=== PATIENT | female | born 1985 | race Caucasian/White ===

== ENCOUNTER 2016-07-05 18:04 | Emergency (ER) | payer MEDICAID ==
[~2016-07-05] VITALS: Ht 160 cm; Wt 101.5 kg
[~2016-07-05 18:04] MED LIST: METF500T PO
[2016-07-05 18:32] VITALS: Ht 160 cm; Wt 101.5 kg
--- NOTE | 2016-07-05 19:16 | ERD ---
ER Documentation Chief Complaint Date/Time DATE: 07/05/16 TIME: 19:07 Chief Complaint sent by pmd for high blood sugar 15 weeks blood sugar poc 93 HPI 30-year-old female presents here in emergency department for an elevated blood sugar episode last Saturday. Patient had a blood draw, but patient ate prior to blood draw, patient had a phone call today from that her blood sugar was elevated. Patient was advised to go to the emergency department for evaluation. Patient does not have any other symptoms. Patient is approximately 15 weeks , 3 para 2 0. Patient has any abdominal pain, cramping hematuria dysuria vomiting. Patient denies any symptoms. ROS All systems reviewed and are negative except as per history of present illness. Medications Home Meds Reported Medications Metformin Hcl (Glucophage) 500 Mg Tablet, 500 MG PO HS, TAB 07/02/14 Allergies Allergies: Coded Allergies: No Known Allergy (Unverified , 07/02/14) PMhx/Soc Medical and Surgical Hx: pt denies Medical Hx, pt denies Surgical Hx FmHx Family History: No coronary disease, No diabetes, No other Physical Exam Vitals Vital Signs Date Time Temp Pulse Resp B/P Pulse Ox O2 Delivery O2 Flow Rate FiO2 07/05/16 18:32 98.9 79 18 123/77 99 Physical Exam GENERAL: The child is well developed and nourished for age, interactive and vigorous appearing. No acute distress and nontoxic. HEENT: Atraumatic. Ears: Normal tympanic membrane, no erythema or bulging. No ear canal swelling. No ear discharge. Nose: normal nasal turbinates, no erythema or swelling. Normal nasal discharge. Throat: oropharynx clear. No tonsillar swelling or tonsillar exudates. No lymphadenopathy. LUNGS: Clear to auscultation. No accessory muscle use. No wheezing, no crackles. No signs or symptoms of respiratory distress. HEART: Regular rate and rhythm. No murmurs, clicks, rubs or gallops. ABDOMEN: Soft, nontender and nondistended. Bowel sounds positive. No rebound or guarding. No gross peritoneal signs. No Delgadillo or McBurney point tenderness. No gross masses. BACK: No midline tenderness, no costovertebral tenderness. EXTREMITIES: There is no peripheral cyanosis or edema. No focal pain or notable trauma. Full range of motion. Good capillary refill. NEURO: The patient moves all 4 extremities with 5/5 strength. Cranial nerves are grossly intact. Normal mental status for age. SKIN: There is no apparent rash, petechiae, erythema or swelling. Good skin turgor. Results 24 hrs Laboratory Tests Test 07/05/16 18:34 Bedside Glucose 93mg/dL Procedures/MDM Medical decision making:Patient's diabetic symptoms is normal and evaluation here in the emergency department , blood sugar is 93 mg/dL and appear appropriate for outpatient management. No evidence at this time of diabetic ketoacidosis, hyperosmolar syndrome, or severe systemic infection. She was advised to follow-up with primary care doctor for further evaluation, outpatient management is appropriate at this time. Patient was advised to return to emergency department for any worsening symptoms. Departure Diagnosis: Primary Impression: Hyperglycemia Patient Instructions: Hyperglycemia (High Blood Sugar) Additional Instructions: today's blood sugar is 93 mg/dl, normal Patient's diabetic symptoms are normal upon reevaluation here in the emergency department and appear appropriate for outpatient management. No evidence at this time of diabetic ketoacidosis, hyperosmolar syndrome, or severe systemic infection. JANELLE PERKINS NP July 05, 2016 19:16
== END 2016-07-05 19:07 | disposition home or self-care (01) ==
LOC: E/R 18:04
DX: O99.89 Other specified diseases and conditions complicating pregnancy, childbirth and the puerperium (principal); R73.9 Hyperglycemia, unspecified; Z3A.15 15 weeks gestation of pregnancy
CPT/HCPCS: 82962; Z7502; 99282

== ENCOUNTER 2016-07-16 16:30 | Inpatient (IN) | payer MEDICAID ==
[2016-07-16] MEDS ORDERED: GLUCOSE GEL 15 GRAM TUBE PO PRN ×2 (19:00)
[2016-07-16] MEDS ORDERED: GLUCOSE GEL 15 GRAM TUBE BUCCAL PRN (19:00)
[2016-07-16] MEDS ORDERED: GLUCAGON 1 MG INJ IM PRN (19:00)
[2016-07-16] MEDS ORDERED: DEXTROSE 50% 50 ML SYRINGE IV PRN ×2 (19:00)
[2016-07-16] MEDS ORDERED: ACCU-CHEK XX SCH (20:05)
[2016-07-16] MEDS: INSULIN ASPART [NOVOLOG] 3 ML PEN SC SCH (20:05)
[2016-07-16] MEDS: ACCU-CHEK XX SCH ×2 (20:06)
[2016-07-16 20:58] LABS: ADD SCAN DIFF NO
[2016-07-16 21:02] LABS: BASOPHIL # 0.1 10^3/ul (0.0-0.1); BASOPHILS % 0.3 % (0.0-2.0); EOSINOPHILS # 0.4 10^3/ul (0.0-0.5); EOSINOPHILS % 2.6 % (0.0-7.0); HEMATOCRIT 34.5 % (37.0-47.0); LYMPHOCYTES # 3.3 10^3/ul (0.8-2.9); LYMPHOCYTES % 19.5 % (15.0-51.0); MEAN CORPUSCULAR HEMOGLOBIN 27.9 pg (29.0-33.0); MEAN CORPUSCULAR HGB CONC 34.8 g/dl (32.0-37.0); MEAN CORPUSCULAR VOLUME 80.2 fl (82.0-101.0); MEAN PLATELET VOLUME 9.5 fl (7.4-10.4); MONOCYTE # 0.6 10^3/ul (0.3-0.9); MONOCYTES % 3.5 % (0.0-11.0); NEUTROPHIL # 12.3 10^3/ul (1.6-7.5); NEUTROPHILS % 73.7 % (39.0-77.0); PLATELET COUNT 303 10^3/UL (140-415); WHITE BLOOD COUNT 16.7 10^3/ul (4.8-10.8)
[2016-07-16 21:21] LABS: ALBUMIN 3.7 g/dl (3.3-4.9); ALBUMIN/GLOBULIN RATIO 1.08; CALCIUM 9.1 mg/dl (8.4-10.2); CREATININE 0.43 mg/dl (0.44-1.00); POTASSIUM 3.5 mmol/L (3.5-5.1); TOTAL PROTEIN 7.1 g/dl (6.1-8.1)
--- NOTE | 2016-07-17 06:44 | RADRPT ---
PROCEDURE: Obstetrical ultrasound, limited. CLINICAL INDICATION: Pelvic pain. TECHNIQUE: Multiple sonographic images of the pelvis were obtained using transabdominal technique . Images were obtained with urias scale and color Doppler. The images were reviewed on a PACS works tation. COMPARISON: No prior studies are available for comparison. FINDINGS: There is a single intrauterine gestation with the fetus in a vertex presentation. heart tones of 154 beats per minute are identified. The placenta is anterior in location, grade 0. IMPRESSION: Single viable intrauterine gestation with positive heart tones. .Nazario Sutton MD, MD Date Time Electronically viewed and signed by .Nazario Sutton MD, MD on 07/17/2016 06:43 .T/
[2016-07-17] MEDS: ACCU-CHEK XX SCH ×8 (08:00→20:52)
[2016-07-17] MEDS: INSULIN ASPART [NOVOLOG] 3 ML PEN SC SCH ×3 (10:00→20:05)
[2016-07-17] MEDS ORDERED: INSULIN ASPART [NOVOLOG] 3 ML PEN SC SCH (18:05)
[2016-07-17 18:58] LABS: SCRET 0.43 mg/dl (0.44-1.00)
[2016-07-17] MEDS ORDERED: ACCU-CHEK XX SCH (20:05)
--- NOTE | 2016-07-17 20:38 | QN ---
Documentation Comment No complaint Afebrile VSS Blood glucose elevated. Patient is started on insulin regimen by Perinatology. ANTHONY BONDS MD July 17, 2016 20:38
[2016-07-17] MEDS ORDERED: INSULIN ISOPHANE (NPH) 10 ML INJ SC SCH (21:00)
[2016-07-17] MEDS ORDERED: SALINE 0.65% NAS 14.1 GM TUBE NASAL PRN (21:00)
--- NOTE | 2016-07-18 06:36 | HP ---
DATE OF ADMISSION: 07/16/2016 HISTORY OF PRESENT ILLNESS: A 30-year-old female 3, para 2, estimated date of delivery 12/26, at 14 weeks gestation, was admitted due to uncontrolled diabetes mellitus. PAST MEDICAL HISTORY: Diabetes. PAST SURGICAL HISTORY: Oophorectomy. ALLERGIES: NO KNOWN ALLERGIES. FAMILY HISTORY: Diabetes. PHYSICAL EXAMINATION: VITAL SIGNS: Patient is afebrile. Vital signs stable. HEAD, NECK AND CHEST: Within normal limits. ABDOMEN: Soft, nontender, nondistended. PELVIC: Normal. ____. ____: Within normal limits. Laboratory studies included a hemoglobin A1c of 9.4 and random blood g lucose of 250 ____. IMPRESSION: at 14 weeks with uncontrolled diabetes mellitus. PLAN: Admit. Diabetic diet and Accu-Cheks fasting at 2 hour postprandial, diabetic teaching, nutri tional consult and perinatology consultations. Dictated By: ANTHONY BAI/LINDSAY Conf#: [id number] DID#: [id number]
[2016-07-18] MEDS ORDERED: INSULIN ISOPHANE (NPH) 10 ML INJ SC SCH ×2 (07:30)
[2016-07-18] MEDS ORDERED: INSULIN ASPART [NOVOLOG] 3 ML PEN SC SCH (08:00)
[2016-07-18] MEDS: ACCU-CHEK XX SCH ×5 (08:35→15:20)
[2016-07-18] MEDS: INSULIN ASPART [NOVOLOG] 3 ML PEN SC SCH (11:17)
--- NOTE | 2016-07-18 13:25 | RADRPT ---
Vent Rate: 76 bpm RR Interval: 0 msec FL Interval: 142 msec QRS Duration: 100 msec QT Interval: 378 msec QTC Interval: 425 msec P-R-T [place]: 41 - 56 - 41 degrees Normal sinus rhythm Normal ECG Electronically Signed By: Angelito Monet [id number]
--- NOTE | 2016-07-18 14:29 | CONS ---
DATE OF ADMISSION: 07/16/2016 DATE OF CONSULTATION: 07/17/2016 HISTORY OF PRESENT ILLNESS: The patient is a 30-year-old G3, P2 at currently 14 weeks and 1 day who was admitted for uncontrolled diabetes her first trimester. Her hemoglobin A1c was 9.4% at the jasvir e of admission. She has been diabetic since her last and has not had any management since diagnosis. Upon admission to the hospital, she was placed on insulin, and currently, as of about 1 0 minutes ago, her numbers are much, much improved. There are within normal limits except for fasti ng for which I increased NPH at bedtime. PAST MEDICAL HISTORY: Per above. PAST SURGICAL HISTORY: None. REVIEW OF SYSTEMS: Everything is negative except for what is mentioned above. VITAL SIGNS: Stable. PHYSICAL EXAMINATION: Deferred. LABORATORY DATA: A 24-hour urine shows protein amount to be over 500 grams. IMPRESSION: Intrauterine at 14 weeks with uncontrolled diabetes on insulin, initiated upo n admission to the hospital, currently much improved. RECOMMENDATIONS: She can be discharged home on the regimen currently. She should be seen in our clinic within 2 weeks after discharge. She is to continue with her insuli n regimen and dietary recommendations which she was given at the hospital. Dictated By: RUBY ATWOOD/LINDSAY Conf#: [id number] DID#: [id number]
--- NOTE | 2016-07-18 14:42 | DS ---
DATE OF ADMISSION: 07/16/2016 DATE OF DISCHARGE: 07/18/2016 ADMITTING DIAGNOSIS: at 14 weeks, uncontrolled diabetes. HISTORY: A 30-year-old female 3, para 2, at 14 weeks' gestation was admitted per recommenda tion of perinatologist for control of her diabetes. The patient was admitted on 07/16/2016. The pa tient was placed on diabetic diet. The patient's blood sugar was monitored. The patient was placed on insulin regimen by perinatologist. The patient's insulin regimen was adjusted. The patient's b lood sugar was controlled. On 07/18/2016, the patient was cleared for discharge by perinatologist. CONDITION ON DISCHARGE: Stable. DISCHARGE INSTRUCTIONS: DIET: A 2000 calorie ADA diet. ACTIVITIES: As tolerated. MEDICATIONS: Continue with: 1. Insulin regimen. 2. vitamins. FOLLOWUP: With perinatology in 1 week. FINAL DIAGNOSES: 1. , not delivered. 2. Insulin-dependent diabetes. Dictated By: ANTHONY BAI/NTS Conf#: [id number] DID#: [id number]
== END 2016-07-18 16:15 | disposition home or self-care (01) | DRG 781 ==
LOC: OBG 16:30
PROVIDERS: ADMIT Obstetrics & Gynecology; ATTEND Obstetrics & Gynecology
DX: O24.112 Pre-existing type 2 diabetes mellitus, in pregnancy, second trimester (principal); E11.9 Type 2 diabetes mellitus without complications; Z3A.14 14 weeks gestation of pregnancy; Z79.4 Long term (current) use of insulin
CPT/HCPCS: 76805; 80053; 82575; 82962; 84156; 85025; 93005; J1815

== ENCOUNTER 2016-12-17 20:01 | Inpatient (IN) | payer MEDICAID ==
[~2016-12-17] VITALS: Ht 157.5 cm; Wt 105.2 kg
--- NOTE | 2016-12-17 20:03 | NSTRPT ---
NST Information Datetime Report Generated by CPN: 12/17/2016 20:03 Datetime: 12/14/2016 10:31 NST Information EGA: 36.3 NST Duration (Min): 25 Datetime: 12/11/2016 10:37 NST Information EGA: 36.0 NST Duration (Min): 27 Electronically Signed By E-Signature: with User ID: [id number] Datetime: 12/07/2016 10:39 NST Information EGA: 35.3 NST Duration (Min): 27 Datetime: 12/04/2016 10:30 NST Information EGA: 35.0 NST Duration (Min): 62 Datetime: 11/30/2016 09:57 NST Information EGA: 34.3 NST Duration (Min): 35 Datetime: 11/27/2016 13:13 NST Information EGA: 34.0 NST Duration (Min): 39 Datetime: 11/22/2016 09:43 NST Information EGA: 33.2 NST Duration (Min): 39 Datetime: 11/19/2016 15:03 NST Information EGA: 32.6 NST Duration (Min): 40 Datetime: 11/15/2016 10:58 NST Information EGA: 32.2 NST Duration (Min): 26
--- NOTE | 2016-12-17 20:03 | NSTRPT ---
NST Information Datetime Report Generated by CPN: 12/17/2016 20:03 Datetime: 12/14/2016 10:31 NST Information EGA: 36.3 NST Duration (Min): 25 Datetime: 12/11/2016 10:37 NST Information EGA: 36.0 NST Duration (Min): 27 Electronically Signed By E-Signature: with User ID: [id number] Datetime: 12/07/2016 10:39 NST Information EGA: 35.3 NST Duration (Min): 27 Datetime: 12/04/2016 10:30 NST Information EGA: 35.0 NST Duration (Min): 62 Datetime: 11/30/2016 09:57 NST Information EGA: 34.3 NST Duration (Min): 35 Datetime: 11/27/2016 13:13 NST Information EGA: 34.0 NST Duration (Min): 39 Datetime: 11/22/2016 09:43 NST Information EGA: 33.2 NST Duration (Min): 39 Datetime: 11/19/2016 15:03 NST Information EGA: 32.6 NST Duration (Min): 40 Datetime: 11/15/2016 10:58 NST Information EGA: 32.2 NST Duration (Min): 26
--- NOTE | 2016-12-17 20:03 | NSTRPT ---
NST Information Datetime Report Generated by CPN: 12/17/2016 20:03 Datetime: 12/14/2016 10:31 NST Information EGA: 36.3 NST Duration (Min): 25 Datetime: 12/11/2016 10:37 NST Information EGA: 36.0 NST Duration (Min): 27 Electronically Signed By E-Signature: with User ID: [id number] Datetime: 12/07/2016 10:39 NST Information EGA: 35.3 NST Duration (Min): 27 Datetime: 12/04/2016 10:30 NST Information EGA: 35.0 NST Duration (Min): 62 Datetime: 11/30/2016 09:57 NST Information EGA: 34.3 NST Duration (Min): 35 Datetime: 11/27/2016 13:13 NST Information EGA: 34.0 NST Duration (Min): 39 Datetime: 11/22/2016 09:43 NST Information EGA: 33.2 NST Duration (Min): 39 Datetime: 11/19/2016 15:03 NST Information EGA: 32.6 NST Duration (Min): 40 Datetime: 11/15/2016 10:58 NST Information EGA: 32.2 NST Duration (Min): 26
[2016-12-17 20:43] VITALS: Ht 157.5 cm; Wt 105.2 kg
[2016-12-17 20:44] VITALS: BP 148/79; PULSE 90; RESP 19
[2016-12-17] MEDS ORDERED: FER325 PO (20:46)
[2016-12-17] MEDS ORDERED: PREN1TAB17 PO (20:46)
--- NOTE | 2016-12-17 21:39 | RADRPT ---
PROCEDURE: Obstetrical ultrasound for biophysical profile CLINICAL INDICATION: Biophysical profile. . TECHNIQUE: Obstetrical ultrasound of the uterus for biophysical profile. Transabdominal views are obtained. COMPARISON: 12/14/2016 FINDINGS: Single intrauterine gestation. Presentation: Cephalic. Placenta: Right lateral No evidence of placental abruption. No evidence of placenta previa. breathing movement = 2/2 tone = 2/2 motion = 2/2 ANU = 2/2 ANU = 12.9 cm heart rate: 132 beats per minute IMPRESSION: Single intrauterine gestation. Biophysical profile 10/02 RPTAT: AADD .Hilario Pereira MD, MD Date Time Electronically viewed and signed by .Hilario Pereira MD, on 12/17/2016 21:39 .B/
[2016-12-17] MEDS ORDERED: NOVO7030 SC (23:27)
[2016-12-17] MEDS ORDERED: INSU100V3 IJ ×2 (23:28→23:29)
[2016-12-17] MEDS ORDERED: NPH,100V SQ ×2 (23:31)
[2016-12-18] MEDS ORDERED: ACETAMINOPHEN 325 MG TAB PO PRN
[2016-12-18] MEDS ORDERED: AL HYDROX/MG HYDROX/SIMETH 30 ML CUP PO PRN
--- NOTE | 2016-12-18 00:59 | TRIAGE ---
OB Triage Datetime Report Generated by CPN: 12/18/2016 00:58 Datetime: 12/18/2016 00:46 Time of Arrival: 12/17/2016 19:49 EGA: 36.6 Arrived By: Wheelchair Arrived From: Home Chief Complaint: SENT FROM CLINIC FOR ELEVATED BP'S WITH ORDERS FOR PIH LABS Movement: Present Contractions: Denies/Absent Rupture of Membranes: Denies Vaginal Bleeding: None Vaginal Discharge: Denies Recent Sexual Intercouse: Denies Patient Complaints: Other Initial Plan: BPP, CBC, CMP, URIC ACID, BPP, UA Datetime: 12/18/2016 00:40 Labor Evaluation Frequency: X3 Monitor Mode: External Duration (sec)2399: 50-60 Pattern: Normal: <= 5 Contractions in 10 Minutes Resting Tone [place]: Relaxed Heart Rate FHR Baseline Rate: 120 Monitor Mode: External US Variability: Moderate 6-25 bpm Accelerations: 15X15 Decelerations: None Category: Category I Datetime: 12/17/2016 23:16 Vaginal Exam Membrane Status: Intact Datetime: 12/17/2016 23:00 Maternal Assessment Level of Consciousness: Fully Conscious DTR's/Clonus: No Clonus Headache: Denies Blurred Vision: No Nausea/Vomiting: Denies RUQ Epigastric Pain: Denies Labor Evaluation Frequency: NONE Monitor Mode: External Pattern: Normal: <= 5 Contractions in 10 Minutes Resting Tone [place]: Relaxed Heart Rate FHR Baseline Rate: 120 Monitor Mode: External US Variability: Moderate 6-25 bpm Accelerations: 15X15 Decelerations: None Category: Category I Datetime: 12/17/2016 22:00 Labor Evaluation Frequency: NONE Monitor Mode: External Pattern: Normal: <= 5 Contractions in 10 Minutes Resting Tone [place]: Relaxed Heart Rate FHR Baseline Rate: 130 Monitor Mode: External US Variability: Moderate 6-25 bpm Accelerations: 15X15 Decelerations: None Category: Category I Datetime: 12/17/2016 21:00 Labor Evaluation Frequency: NONE Monitor Mode: External Pattern: Normal: <= 5 Contractions in 10 Minutes Resting Tone [place]: Relaxed Heart Rate FHR Baseline Rate: 135 Monitor Mode: External US Variability: Moderate 6-25 bpm Accelerations: 15X15 Decelerations: None Category: Category I Datetime: 12/17/2016 20:28 Maternal Assessment Level of Consciousness: Fully Conscious DTR's/Clonus: DTRs 2+; No Clonus Headache: Denies Blurred Vision: No Nausea/Vomiting: Denies RUQ Epigastric Pain: Denies Datetime: 07/18/2016 15:23 Stage of : Antepartum Datetime: 07/18/2016 15:18 Bedside Blood Glucose: 95 (Annotations: 2 HOUR POST LUNCH) Datetime: 07/18/2016 13:45 Stage of : Antepartum Datetime: 07/18/2016 11:28 Temperature Route: Oral Pain Assessment Pain Scale: 0 Pain Goal: 0 Datetime: 07/18/2016 11:17 Stage of : Antepartum Bedside Blood Glucose: 95 (Annotations: 2 hour post prandial) Datetime: 07/18/2016 08:28 Stage of : Antepartum Bedside Blood Glucose: 109 (Annotations: FBG) Datetime: 07/18/2016 07:32 Stage of : Antepartum Assessment Type: Ongoing Assessment Maternal Assessment Level of Consciousness: Fully Conscious DTR's/Clonus: DTRs 2+; No Clonus Headache: Denies Blurred Vision: No Respiratory Effort: Unlabored; Regular Rhythm; Equal Expansion Breath Sounds, Left: Clear and Equal Breath Sounds, Right: Clear and Equal Nausea/Vomiting: Denies RUQ Epigastric Pain: Denies Lower Extremities Edema: None Degree: None Upper Extremities Edema: None Degree: None Facial Edema: None Temperature Route: Oral Fall Risk Assessment History of Falling: (0) No Secondary Diagnosis: (0) No Ambulatory Aid: (0) Bedrest/Nurse Assist IV Therapy: (0) No Gait: (0) Normal/Bedrest/Immobile Mental Status: (0) Oriented to Own Ability Fall Score: 0 Fall Risk Score Definition: No Risk: No action required Pain Assessment Pain Scale: 0 Pain Presence: None/Denies Pain Type: N/A Pain Goal: 0 Datetime: 07/18/2016 06:23 Stage of : Antepartum Temperature Route: Oral Pain Presence: None/Denies Datetime: 07/18/2016 00:41 Stage of : Antepartum Pain Presence: None/Denies Pain Type: N/A Datetime: 07/17/2016 20:06 Stage of : Antepartum Assessment Type: Ongoing Assessment Maternal Assessment Level of Consciousness: Fully Conscious DTR's/Clonus: DTRs 2+; No Clonus Headache: Denies Blurred Vision: No Respiratory Effort: Unlabored; Regular Rhythm; Equal Expansion Breath Sounds, Left: Clear and Equal Breath Sounds, Right: Clear and Equal Nausea/Vomiting: Denies RUQ Epigastric Pain: Denies Lower Extremities Edema: None Degree: None Upper Extremities Edema: None Degree: None Facial Edema: None Temperature Route: Oral Fall Risk Assessment History of Falling: (0) No Secondary Diagnosis: (0) No Ambulatory Aid: (0) Bedrest/Nurse Assist IV Therapy: (0) No Gait: (0) Normal/Bedrest/Immobile Mental Status: (0) Oriented to Own Ability Fall Score: 0 Fall Risk Score Definition: No Risk: No action required Pain Presence: None/Denies Pain Type: N/A Datetime: 07/17/2016 19:16 Stage of : Antepartum Datetime: 07/17/2016 18:10 Stage of : Antepartum Datetime: 07/17/2016 15:00 Stage of : Antepartum Datetime: 07/17/2016 14:50 Bedside Blood Glucose: 98 Datetime: 07/17/2016 14:14 Stage of : Antepartum Datetime: 07/17/2016 11:21 Stage of : Antepartum Temperature Route: Oral Pain Assessment Pain Scale: 0 Pain Presence: None/Denies Datetime: 07/17/2016 11:16 Stage of : Antepartum Datetime: 07/17/2016 11:08 Bedside Blood Glucose: 134 Datetime: 07/17/2016 07:40 Assessment Type: Ongoing Assessment Maternal Assessment Level of Consciousness: Fully Conscious DTR's/Clonus: DTRs 2+; No Clonus Headache: Denies Blurred Vision: No Respiratory Effort: Unlabored; Regular Rhythm; Equal Expansion Breath Sounds, Left: Clear and Equal Breath Sounds, Right: Clear and Equal Nausea/Vomiting: Denies RUQ Epigastric Pain: Denies Lower Extremities Edema: None Degree: None Upper Extremities Edema: None Degree: None Facial Edema: None Fall Risk Assessment History of Falling: (0) No Secondary Diagnosis: (0) No Ambulatory Aid: (0) Bedrest/Nurse Assist IV Therapy: (0) No Gait: (0) Normal/Bedrest/Immobile Mental Status: (0) Oriented to Own Ability Fall Score: 0 Fall Risk Score Definition: No Risk: No action required Datetime: 07/17/2016 07:39 Stage of : Antepartum Temperature Route: Oral Pain Assessment Pain Scale: 0 Pain Presence: None/Denies Pain Goal: 0 Datetime: 07/17/2016 07:36 Stage of : Antepartum Datetime: 07/17/2016 04:45 Stage of : Antepartum Temperature Route: Oral Pain Assessment Pain Scale: 0 Pain Presence: None/Denies Pain Type: N/A Datetime: 07/17/2016 00:20 Stage of : Antepartum Pain Assessment Pain Scale: 0 Pain Presence: None/Denies Pain Type: N/A Datetime: 07/16/2016 23:31 Stage of : Antepartum Temperature Route: Oral Pain Assessment Pain Scale: 0 Pain Presence: None/Denies Pain Type: N/A Datetime: 07/16/2016 22:30 Stage of : Antepartum Pain Assessment Pain Scale: 0 Pain Presence: None/Denies Pain Type: N/A Datetime: 07/16/2016 21:30 Stage of : Antepartum Pain Assessment Comments: Unable to assess, patient sleeping Datetime: 07/16/2016 20:06 Bedside Blood Glucose: 136 Datetime: 07/16/2016 19:38 Stage of : OB Triage Assessment Type: Ongoing Assessment Maternal Assessment Level of Consciousness: Fully Conscious DTR's/Clonus: DTRs 2+; No Clonus Headache: Denies Blurred Vision: No Respiratory Effort: Unlabored; Regular Rhythm; Equal Expansion Breath Sounds, Left: Clear and Equal Breath Sounds, Right: Clear and Equal Nausea/Vomiting: Denies RUQ Epigastric Pain: Denies Lower Extremities Edema: None Degree: None Upper Extremities Edema: None Degree: None Facial Edema: None Temperature Route: Oral Fall Risk Assessment History of Falling: (0) No Secondary Diagnosis: (0) No Ambulatory Aid: (0) Bedrest/Nurse Assist IV Therapy: (0) No Gait: (0) Normal/Bedrest/Immobile Mental Status: (0) Oriented to Own Ability Fall Score: 0 Fall Risk Score Definition: No Risk: No action required Pain Assessment Pain Scale: 0 Pain Presence: None/Denies Pain Type: N/A Datetime: 07/16/2016 18:57 Time of Arrival: 07/16/2016 17:00 EGA: 14.6 Arrived By: Ambulatory Datetime: 07/16/2016 17:00 Maternal Assessment Level of Consciousness: Fully Conscious DTR's/Clonus: DTRs 2+; No Clonus Headache: Denies Breath Sounds, Left: Clear and Equal Breath Sounds, Right: Clear and Equal Nausea/Vomiting: Denies RUQ Epigastric Pain: Denies Temperature Route: Oral Heart Rate FHR Baseline Rate: 144 Monitor Mode: Doppler Comments: LISTENED FOR 1 MINUTE Datetime: 07/16/2016 16:49 Assessment Type: Admission Assessment Blurred Vision: No Respiratory Effort: Unlabored; Regular Rhythm; Equal Expansion Lower Extremities Edema: None Degree: None Upper Extremities Edema: None Degree: None Facial Edema: None Fall Risk Assessment History of Falling: (0) No Secondary Diagnosis: (0) No Ambulatory Aid: (0) Bedrest/Nurse Assist IV Therapy: (0) No Gait: (0) Normal/Bedrest/Immobile Mental Status: (0) Oriented to Own Ability Fall Score: 0 Fall Risk Score Definition: No Risk: No action required
[2016-12-18] MEDS ORDERED: INSULIN ASPART [NOVOLOG] 3 ML PEN SC SCH ×2 (07:30→17:35)
[2016-12-18] MEDS ORDERED: NPH, HUMAN INSULIN ISOPHANE 3ML VIAL SC SCH ×2 (07:30→17:05)
[2016-12-18] MEDS ORDERED: PRENATAL VITAMIN PO SCH (09:00)
--- NOTE | 2016-12-18 11:15 | HP ---
Date/Time of Note Date/Time of Note DATE: 12/18/16 TIME: 11:11 OB - History Hx of Present Chief Complaint: Elevated BP in clinic Estimated Due Date: Jan 08, 2017 : 3 Para: 2 Spontaneous : 0 Therapeutic : 0 Care: Good Care Ultrasounds: Normal mid trimester US Obstetrical Complications: Gestational Hypertension Medical Complications: Other (IDDM) Past Family/Social History * Past Medical, Surgical, Family and Obstetric Histories reviewed from chart. GBS Status: Positive OB Admission Exam Vital Signs Vital Signs Vital Signs Date Time Temp Pulse Resp B/P Pulse Ox O2 Delivery O2 Flow Rate FiO2 12/17/16 20:44 98.0 90 19 148/79 Room Air Physical Exam HEENT: WNL Heart: Rhythm Normal Lungs: Clear, Equal Abdomen: WNL Extremities: Normal Reflexes: Normal Cervical Dilatation: None Effacement: 25% Station: -2 Membranes: Intact Heart Rate: 130's Accelerations: Accelerations Present Decelerations: No Decelerations Varibility: Moderate Last 72 hourBlood Glucose Bedside Glucose - 72 Hours Test 12/18/16 08:47 Bedside Glucose 89mg/dL (70-220) Last 72 hours Lab Results CBC & BMP 12/17/16 21:08 Liver Function Test 12/17/16 21:08 Alanine Aminotransferase (ALT/SGPT) 19 Albumin 3.3 Alkaline Phosphatase 156 H Aspartate Amino Transf (AST/SGOT) 16 Direct Bilirubin 0.00 Total Protein 6.6 OB Assessment/Plan Reason for admission: induction of labor Other Assessment: Preeclampsia Case discussed with Dr Ramirez who recommends to deliver the patient. Plan: Induction Induction Method: per Misoprostol Protocol ANTHONY BONDS MD Dec 18, 2016 11:15
[2016-12-18] MEDS: LACTATED RINGER'S 1,000 ML IV SCH ×3 (11:20→19:38)
[2016-12-18] MEDS ORDERED: AMPICILLIN 2 GM/NS (PMX) 100 ML ONE (11:53)
[2016-12-18] MEDS ORDERED: LACTATED RINGER'S 1,000 ML IV PRN (11:57)
[2016-12-18] MEDS: DEXTROSE 5%-LR 1,000 ML IV SCH ×2 (11:57→23:36)
[2016-12-18] MEDS ORDERED: OXYTOCIN 30 UNITS/LR 500 ML IV PRN (12:00)
[2016-12-18] MEDS ORDERED: AMPICILLIN 2 GM/NS (PMX) 100 ML IV ONE (12:00)
[2016-12-18] MEDS ORDERED: BUTORPHANOL 2 MG INJ IV PRN (12:00)
[2016-12-18] MEDS ORDERED: LIDOCAINE 1% (MPF) 30 ML INJ INJ PRN (12:00)
[2016-12-18] MEDS ORDERED: CARBOPROST 250 MCG INJ IM PRN (12:00)
[2016-12-18] MEDS ORDERED: MISOPROSTOL 200 MCG TAB PR PRN (12:00)
[2016-12-18] MEDS ORDERED: OXYTOCIN 30 UNITS/LR 500 ML IV SCH (12:00)
[2016-12-18] MEDS ORDERED: IBUPROFEN 600 MG TAB PO PRN (12:00)
[2016-12-18] MEDS ORDERED: METHYLERGONOVINE 0.2 MG INJ IM PRN (12:00)
[2016-12-18] MEDS: MISOPROSTOL 25 MCG CAPSULE PO SCH ×3 (12:30→22:02)
[2016-12-18] MEDS ORDERED: FENTAnyl 2MCG/ML-ROPIV 0.2% 100 ML ONE (15:17)
[2016-12-18] MEDS: AMPICILLIN 1 GM/NS (PMX) 50 ML IV SCH ×2 (15:47→19:57)
[2016-12-18] MEDS ORDERED: MAGNESIUM SULFATE 4 GM/100 ML 100 ML IV SCH (23:00)
[2016-12-18] MEDS: MAGNESIUM SULFATE 20 GM/500 ML 500 ML IV SCH (23:45)
[2016-12-19] VITALS (18 sets, daily range): BP systolic 117–161; BP diastolic 63–90; PULSE 70–87; RESP 17–20
[2016-12-19] MEDS ORDERED: FENTAnyl 2MCG/ML-ROPIV 0.2% 100 ML ONE (00:16)
[2016-12-19] MEDS: AMPICILLIN 1 GM/NS (PMX) 50 ML IV SCH (00:29)
[2016-12-19] MEDS ORDERED: NALOXONE (0.4 MG/ML) INJ IV PRN (00:30)
[2016-12-19] MEDS ORDERED: DIPHENHYDRAMINE 50 MG INJ IV PRN (00:30)
[2016-12-19] MEDS ORDERED: FENTAnyl 2MCG/ML-ROPIV 0.2% 100 ML BAG EPI SCH (00:30)
[2016-12-19] MEDS ORDERED: ONDANSETRON 4 MG INJ IV PRN (00:30)
--- NOTE | 2016-12-19 03:18 | LDN ---
Date/Time of Note Date/Time of Note DATE: 12/19/16 TIME: 03:16 Delivery Summary Weeks of Gestation 37 weeks and 1 day Placenta Delivered: Spontaneously Meconium: none Episiotomy: No Perineal laceration: 1 Laceration repair: First degree laceration repaired with 3-0 chromic. Anesthesia type: Epidural Estimated blood loss: 300 Sponge & Needle done & correct: Yes All needle counts correct: Yes Any foreign bodies felt in the: No Problems: Delivery Information Sex Infant Sex: female Apgars 1 Minute: 8 5 Minute: 9 Suctioning Nose & mouth suctioned at [place]: Yes Delee suction performed: No Umbilical Cord Umbilical cord with: 3 Vessels Cord presentations: no nuchal cord Cord Blood was obtained: Yes Mother & Baby Disposition Disposition Mom & Baby to Maternity; Good: Yes ANTHONY BONDS MD Dec 19, 2016 03:18
[2016-12-19] MEDS: OXYTOCIN 30 UNITS/LR 500 ML IV SCH ×2 (03:28→04:24)
[2016-12-19] MEDS: LACTATED RINGER'S 1,000 ML IV* SCH ×4 (05:22→23:52)
[2016-12-19] MEDS ORDERED: LANOLIN 7 GM TUBE TOP PRN (05:30)
[2016-12-19] MEDS ORDERED: DIBUCAINE 1% 30 GM OINT PR PRN (05:30)
[2016-12-19] MEDS ORDERED: OXYTOCIN 30 UNITS/LR 500 ML IV PRN (05:30)
[2016-12-19] MEDS ORDERED: WITCH HAZEL/GLYCERIN PAD PR PRN (05:30)
[2016-12-19] MEDS ORDERED: MISOPROSTOL 200 MCG TAB PR PRN (05:30)
[2016-12-19] MEDS ORDERED: ACETAMINOPHEN 325 MG TAB PO PRN (05:30)
[2016-12-19] MEDS ORDERED: CARBOPROST 250 MCG INJ IM PRN (05:30)
[2016-12-19] MEDS: ACCU-CHEK XX SCH ×6 (06:00→20:05)
[2016-12-19] MEDS: SENNA/DOCUSATE NA (8.6MG/50MG) TAB PO SCH ×2 (08:44→22:12)
[2016-12-19] MEDS: BENZOCAINE 20% 56 ML SPRAY TOP PRN (11:05)
[2016-12-19] MEDS: MAGNESIUM SULFATE 20 GM/500 ML 500 ML IV SCH ×3 (11:16→23:18)
[2016-12-19] MEDS: IBUPROFEN 600 MG TAB PO PRN (12:19)
[2016-12-19] MEDS: HYDROCODONE/APAP (5/325) TAB PO PRN (17:31)
--- NOTE | 2016-12-19 17:50 | CONS ---
Date/Time of Note Date/Time of Note DATE: 12/19/16 TIME: 17:41 Assessment/Plan Assessment/Plan Problems: (1) Morbid obesity due to excess calories Status: Chronic Comment: Calorie restriction diet would be in this patient's best interest. This would help resolve her insulin resistance syndrome which would then have profoundly beneficial effects on her mental metabolic state. Patient has been counseled. (2) Diabetes mellitus type 2 in obese Status: Chronic Comment: Given that the patient is planning on breast-feeding will go ahead and use an insulin based protocol. Will try and find out who her primary care physician is so that we can coordinate with that individual. Consultation Date/Type/Reason Admit Date/Time Dec 17, 2016 at 23:00 Date of Consultation: Dec 19, 2016 Type of Consultation: Endocrinology Reason for Consultation Diabetes mellitus type 2 now Referring Provider: ANTHONY BONDS MD Hx of Present Illness 31-year-old female with a history of gestational diabetes in 2014. her sugars never fully recovered but she was not treated. She became again this year was found to have hyperglycemia with an A1c in the high nines at the end of the first trimester. She was placed on diabetic therapy using NPH insulin and rapid acting insulin. She is now delivered and the perinatologist have signed off the case at the moment of delivery. Past Medical History Medical History: diabetes, other (Obesity; Ab0; please note negative viral serology negative hepatitis C and hepatitis B serologies) Past Surgical History Past Surgical Hx: noncontributory Family History Significant Family History: diabetes, hypertension Social History Alcohol Use: none Smoking Status: Never smoker Drug Use: none Exam/Review of Systems Vital Signs Vitals Vital Signs Date Time Temp Pulse Resp B/P Pulse Ox O2 Delivery O2 Flow Rate FiO2 12/19/16 17:05 77 19 139/78 Room Air 12/19/16 16:05 98.6 Intake and Output 12/18/16 12/18/16 12/19/16 15:00 23:00 07:00 Intake Total 365 ml 1408 ml 1380 ml Output Total 1700 ml Balance 365 ml -292 ml 1380 ml Exam Constitutional: alert, oriented Head: atraumatic, normocephalic Eyes: EOMI, PERRL, nl lids, nl sclera ENMT: mucosa pink and moist, nl external ears & nose, nl lips & teeth, nl nasal mucosa & septum Neck: non-tender, supple Respiratory: clear to auscultation, normal air movement Cardiovascular: nl pulses, regular rate and rhythm Gastrointestinal: nl liver, spleen, non-tender, soft Musculoskeletal: nl extremities to inspection, nl gait and stance Extremities: normal pulses 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, nl mental status, nl speech, nl strength Skin: nl turgor, rash or lesions Results Result Diagram: 12/18/162 12/18/16 1746 Results 24 hrs Laboratory Tests Test 12/18/16 17:46 12/18/16 20:03 12/18/16 22:41 12/18/16 22:42 Sodium Level 137 Potassium Level 4.2 Chloride Level 105 Carbon Dioxide Level 24 Anion Gap 12 Blood Urea Nitrogen 11 Creatinine 0.68 Glucose Level 79 # Uric Acid 4.5 Calcium Level 9.6 Total Bilirubin 0.1 L Direct Bilirubin 0.00 Indirect Bilirubin 0.1 Aspartate Amino Transf (AST/SGOT) 18 Alanine Aminotransferase (ALT/SGPT) 28 Alkaline Phosphatase 171 H Total Protein 7.3 Albumin 3.4 Globulin 3.90 H Albumin/Globulin Ratio 0.87 Bedside Glucose 94 Prothrombin Time 12.1 L Prothrombin Time Ratio 0.9 INR International Normalized Ratio 0.90 Activated Partial Thromboplast Time 26.9 Fibrinogen 601.0 #H Rapid Plasma Reagin NONREACTIVE White Blood Count 13.1 #H Red Blood Count 4.54 Hemoglobin 11.9 L Hematocrit 35.2 L Mean Corpuscular Volume 77.5 L Mean Corpuscular Hemoglobin 26.2 L Mean Corpuscular Hemoglobin Concent 33.8 Red Cell Distribution Width 13.1 Platelet Count 325 Mean Platelet Volume 9.4 Neutrophils % 74.4 Lymphocytes % 18.8 Monocytes % 4.4 Eosinophils % 1.4 Basophils % 0.5 Nucleated Red Blood Cells % 0.0 Neutrophils # 9.7 H Lymphocytes # 2.5 Monocytes # 0.6 Eosinophils # 0.2 Basophils # 0.1 Nucleated Red Blood Cells # 0.0 Test 12/18/16 23:34 12/19/16 01:38 12/19/16 08:41 12/19/16 10:20 Bedside Glucose 70 112 128 Urine Color YELLOW Urine Clarity CLEAR Urine pH 6.0 Urine Specific [place] 1.011 Urine Ketones NEGATIVE Urine Nitrite NEGATIVE Urine Bilirubin NEGATIVE Urine Urobilinogen NEGATIVE Urine Leukocyte Esterase NEGATIVE Urine Microscopic RBC > 182 H Urine Microscopic WBC 1 Urine Mucus FEW A Urine Hemoglobin 3+ H Urine Glucose NEGATIVE Urine Total Protein NEGATIVE Test 12/19/16 11:02 12/19/16 11:14 12/19/16 14:29 Bedside Glucose 92 140 Magnesium Level 3.9 H Medications Medications Current Medications Magnesium Sulfate 500 ml @ 50 mls/hr Q10H IV Last administered on 12/19/16 11:16; Admin Dose 50 MLS/HR; Start 12/18/16 at 23:30 Lactated Ringer's (Lr) 1,000 ml @ 125 mls/hr Q8H IV* Last administered on 11:08; Admin Dose 125 MLS/HR; Start 12/19/16 at 05:22 Ibuprofen (Motrin) 600 mg Q6 PRN PO pain Last administered on 12/19/16 12:19 ; Admin Dose 600 MG; Start 12/19/16 at 05:30 Acetaminophen (Tylenol Tab) 650 mg Q4H PRN PO PAIN LEVEL 1-5; Start 12/19/16 at 05:30 Acetaminophen/ Hydrocodone Bitart ([place] (5/325)) 1 tab Q4H PRN PO PAIN LEVEL 1 -5 Last administered on 12/19/16 17:31; Admin Dose 1 TAB; Start 12/19/16 at 05:30 Senna/Docusate Sodium (Senokot-S) 1 tab BID PO Last administered on 12/19/16 08:44; Admin Dose 1 TAB; Start 12/19/16 at 09:00 Diphtheria/ Tetanus/Acell Pertussis 0.5 ml 0.5 ml ONCE ONCE IM* ; Start at 09:00; Stop 12/21/16 at 09:01 Oxytocin/Lactated Ringer's 500 ml @ 0 mls/hr ONCE PRN IV For Hemorrhage Management; Start 12/19/16 at 05:30 Carboprost Tromethamine (Hemabate) 250 mcg ONCE PRN IM VAGINAL BLEEDING; Start 12/19/16 at 05:30 Misoprostol (Cytotec) 1,000 mcg ONCE PRN [place] VAGINAL BLEEDING; Start 12/19/16 at 05:30 Diagnostic Test (Pha) (Accu-Chek) 1 ea FBSPP XX ; Start 12/19/16 at 06:00 Copies To: CC: ANTHONY BONDS MD, JOSHUA A MD Dec 19, 2016 17:50
[2016-12-19] MEDS ORDERED: DEXTROSE 50% 50 ML SYRINGE IV PRN ×2 (18:00)
[2016-12-19] MEDS ORDERED: GLUCOSE GEL 15 GRAM TUBE BUCCAL PRN (18:00)
[2016-12-19] MEDS ORDERED: GLUCAGON 1 MG INJ IM PRN (18:00)
[2016-12-19] MEDS ORDERED: GLUCOSE GEL 15 GRAM TUBE PO PRN ×2 (18:00)
[2016-12-19] MEDS: INSULIN ASPART [NOVOLOG] 3 ML PEN SC SCH (18:25)
[2016-12-20] VITALS (10 sets, daily range): BP systolic 131–154; BP diastolic 60–86; PULSE 72–86; RESP 18–20
[2016-12-20] MEDS: HYDROCODONE/APAP (5/325) TAB PO PRN ×2 (01:35→06:44)
[2016-12-20] MEDS: ACCU-CHEK XX SCH ×7 (07:30→20:32)
[2016-12-20] MEDS: INSULIN ASPART [NOVOLOG] 3 ML PEN SC SCH ×3 (08:25→18:11)
[2016-12-20] MEDS: INSULIN GLARGINE [LANtus] 3 ML PEN SC SCH (08:29)
[2016-12-20] MEDS: SENNA/DOCUSATE NA (8.6MG/50MG) TAB PO SCH ×2 (08:30→20:56)
--- NOTE | 2016-12-20 13:16 | CONS ---
Date/Time of Note Date/Time of Note DATE: 12/20/16 TIME: 13:14 Assessment/Plan Assessment/Plan Chief Complaint/Hosp Course 31-year-old female with a history of gestational diabetes in 2015. her sugars never fully recovered but she was not treated. She became again this year was found to have hyperglycemia with an A1c in the high nines at the end of the first trimester. She was placed on diabetic therapy using NPH insulin and rapid acting insulin. She is now delivered and the perinatologist have signed off the case at the moment of delivery. Problems: (1) Diabetes mellitus type 2 in obese Status: Chronic Comment: I have counseled the patient in [place] about the natural history of obesity and insulin resistance syndrome the rationale for treatment goals of treatment the risks and benefits of treatment and the various options of treatment. For now given that she is breast-feeding she will be on an insulin based protocol. As her weight comes down the ability to get rid of the insulin will present itself nicely. In addition when she is done breast-feeding she can be placed on metformin which would be my first action as an outpatient. Then this would be when she is done breast-feeding. In the meantime she goes on a weight loss protocol with a plan to lose approximately 10-15% of her body weight or get herself to about 5% below her prepregnancy weight this will have any immediate and strong beneficial impact on her metabolism. Her main issue will be to make sure that we have her connected with a primary care physician. Consultation Date/Type/Reason Admit Date/Time Dec 17, 2016 at 23:00 Initial Consult Date 12/19/16 Type of Consultation: Endocrinology Reason for Consultation Diabetes mellitus type 2 with morbid obesity now immediately Referring Provider: ANTHONY BONDS MD 24 HR Interval Summary Constitutional: no complaints Exam/Review of Systems Vital Signs Vitals Vital Signs Date Time Temp Pulse Resp B/P Pulse Ox O2 Delivery O2 Flow Rate FiO2 12/20/16 07:45 98.0 76 20 140/83 Room Air Intake and Output 12/19/16 12/19/16 12/20/16 15:00 23:00 07:00 Intake Total 2090 ml 2110 ml 935 ml Output Total 2300 ml 2500 ml 1800 ml Balance -210 ml -390 ml -865 ml Exam Constitutional: alert, oriented Respiratory: clear to auscultation, normal air movement Cardiovascular: nl pulses, regular rate and rhythm Gastrointestinal: nl liver, spleen, non-tender, soft Results Result Diagram: 12/20/16 0951 12/18/16 1746 Results 24 hrs Laboratory Tests Test 12/19/16 14:29 12/19/16 18:20 12/19/16 19:02 12/19/16 22:07 Bedside Glucose 140 149 114 Hemoglobin A1c 6.6 H Magnesium Level 4.0 H Test 12/20/16 00:37 12/20/16 08:00 12/20/16 09:51 12/20/16 10:37 Magnesium Level 3.7 H Bedside Glucose 93 176 White Blood Count 11.3 H Red Blood Count 4.36 Hemoglobin 11.1 L Hematocrit 34.4 L Mean Corpuscular Volume 78.9 L Mean Corpuscular Hemoglobin 25.5 L Mean Corpuscular Hemoglobin Concent 32.3 Red Cell Distribution Width 13.6 Platelet Count 313 Mean Platelet Volume 9.7 Neutrophils % 70.2 Lymphocytes % 24.1 Monocytes % 2.8 Eosinophils % 2.1 Basophils % 0.4 Nucleated Red Blood Cells % 0.0 Neutrophils # 7.9 H Lymphocytes # 2.7 Monocytes # 0.3 Eosinophils # 0.2 Basophils # 0.1 Nucleated Red Blood Cells # 0.0 Test 12/20/16 12:19 Bedside Glucose 70 Medications Medications Current Medications Magnesium Sulfate 500 ml @ 50 mls/hr Q10H IV Last administered on 12/19/16 23:18; Admin Dose 50 MLS/HR; Start 12/18/16 at 23:30 Lactated Ringer's (Lr) 1,000 ml @ 125 mls/hr Q8H IV* Last administered on 23:52; Admin Dose 125 MLS/HR; Start 12/19/16 at 05:22 Ibuprofen (Motrin) 600 mg Q6 PRN PO pain Last administered on 12/19/16 12:19 ; Admin Dose 600 MG; Start 12/19/16 at 05:30 Acetaminophen (Tylenol Tab) 650 mg Q4H PRN PO PAIN LEVEL 1-5; Start 12/19/16 at 05:30 Acetaminophen/ Hydrocodone Bitart ([place] (5/325)) 1 tab Q4H PRN PO PAIN LEVEL 1 -5 Last administered on 12/20/16 06:44; Admin Dose 1 TAB; Start 12/19/16 at 05:30 Senna/Docusate Sodium (Senokot-S) 1 tab BID PO Last administered on 12/20/16 08:30; Admin Dose 1 TAB; Start 12/19/16 at 09:00 Diphtheria/ Tetanus/Acell Pertussis 0.5 ml 0.5 ml ONCE ONCE IM* ; Start at 09:00; Stop 12/21/16 at 09:01 Oxytocin/Lactated Ringer's 500 ml @ 0 mls/hr ONCE PRN IV For Hemorrhage Management; Start 12/19/16 at 05:30 Carboprost Tromethamine (Hemabate) 250 mcg ONCE PRN IM VAGINAL BLEEDING; Start 12/19/16 at 05:30 Misoprostol (Cytotec) 1,000 mcg ONCE PRN [place] VAGINAL BLEEDING; Start 12/19/16 at 05:30 Diagnostic Test (Pha) (Accu-Chek) 1 ea FBSPP XX Last administered on 07:30; Admin Dose 1 EA; Start 12/19/16 at 06:00 Insulin Glargine (Lantus) 16 unit DAILY@08 SC Last administered on 12/20/16 08:29; Admin Dose 16 UNIT; Start 12/20/16 at 08:00 Miscellaneous Information 1 ea NOTE XX ; Start 12/19/16 at 18:00 Glucose (Glutose) 15 gm Q15M PRN PO DECREASED GLUCOSE; Start 12/19/16 at 18:00 Glucose (Glutose) 22.5 gm Q15M PRN PO DECREASED GLUCOSE; Start 12/19/16 at 18: 00 Dextrose (D50w Syringe) 25 ml Q15M PRN IV DECREASED GLUCOSE; Start 12/19/16 at 18:00 Dextrose (D50w Syringe) 50 ml Q15M PRN IV DECREASED GLUCOSE; Start 12/19/16 at 18:00 Glucagon (Glucagen) 1 mg Q15M PRN IM DECREASED GLUCOSE; Start 12/19/16 at 18: 00 Glucose (Glutose) 15 gm Q15M PRN BUCCAL DECREASED GLUCOSE; Start 12/19/16 at 18:00 MARY ROBERTO MD Dec 20, 2016 13:16
--- NOTE | 2016-12-20 18:08 | QN ---
Documentation Comment No complaint Afebrile VSS Fundus firm Lochia scant PPD#1 Stable Continue care per Endocrinology ANTHONY BONDS MD Dec 20, 2016 18:08
--- NOTE | 2016-12-20 18:08 | QN ---
Documentation Comment No complaint Afebrile VSS Fundus firm Lochia scant PPD#1 Stable Continue care per Endocrinology ANTHONY BONDS MD Dec 20, 2016 18:08
--- NOTE | 2016-12-20 18:08 | QN ---
Documentation Comment No complaint Afebrile VSS Fundus firm Lochia scant PPD#1 Stable Continue care per Endocrinology ANTHONY BONDS MD Dec 20, 2016 18:08
[2016-12-20] MEDS ORDERED: INFLUENZA VIRUS VACCINE 0.5 ML SYG IM* ONE (20:00)
[2016-12-20] MEDS: IBUPROFEN 600 MG TAB PO PRN (23:04)
[2016-12-20] MEDS: BENZOCAINE 20% 56 ML SPRAY TOP PRN (23:41)
[2016-12-21] VITALS: BP 137/67; PULSE 65; RESP 18
[2016-12-21] MEDS: HYDROCODONE/APAP (5/325) TAB PO PRN (02:59)
[2016-12-21 04:00] VITALS: BP 137/76; PULSE 70; RESP 17
[2016-12-21] MEDS: INSULIN GLARGINE [LANtus] 3 ML PEN SC SCH (08:03)
[2016-12-21 08:15] VITALS: BP 138/80; PULSE 74; RESP 16
[2016-12-21] MEDS: INSULIN ASPART [NOVOLOG] 3 ML PEN SC SCH ×3 (08:46→18:00)
[2016-12-21] MEDS: SENNA/DOCUSATE NA (8.6MG/50MG) TAB PO SCH (08:51)
[2016-12-21] MEDS ORDERED: DIPHTH/TET/ACEL PERTUSS (ADULT) 0.5 ML VIAL IM* ONE (09:00)
[2016-12-21] MEDS: IBUPROFEN 600 MG TAB PO PRN ×2 (12:55→17:56)
--- NOTE | 2016-12-21 13:45 | CONS ---
Date/Time of Note Date/Time of Note DATE: 12/21/16 TIME: 13:44 Assessment/Plan Assessment/Plan Chief Complaint/Hosp Course 31-year-old female with a history of gestational diabetes in 2014. her sugars never fully recovered but she was not treated. She became again this year was found to have hyperglycemia with an A1c in the high nines at the end of the first trimester. She was placed on diabetic therapy using NPH insulin and rapid acting insulin. She is now delivered and the perinatologist have signed off the case at the moment of delivery. Problems: (1) Diabetes mellitus type 2 in obese Status: Chronic Comment: She is doing well from a diabetic standpoint is stable for discharge on her present regimen. We will see her in the office within 2 weeks. Consultation Date/Type/Reason Admit Date/Time Dec 17, 2016 at 23:00 Initial Consult Date 12/19/16 Type of Consultation: Endocrinology Reason for Consultation Diabetes mellitus type 2 Referring Provider: ANTHONY BONDS MD 24 HR Interval Summary Free Text/Dictation Patient reports she is doing well. Anticipate discharge in the near future. I will see the patient in the office while she is in the immediate post phase. She will get her insurance secured to the week and then guide her through the process to getting her back to her normal state and especially getting her treated medically. Exam/Review of Systems Vital Signs Vitals Vital Signs Date Time Temp Pulse Resp B/P Pulse Ox O2 Delivery O2 Flow Rate FiO2 12/21/16 08:15 98.8 74 16 138/80 Room Air Exam Constitutional: alert, oriented Neck: non-tender, supple Respiratory: clear to auscultation, normal air movement Cardiovascular: nl pulses, regular rate and rhythm Results Result Diagram: 12/20/16 0951 12/18/16 1746 Results 24 hrs Laboratory Tests Test 12/20/16 15:00 12/20/16 20:32 12/21/16 07:45 12/21/16 08:43 Bedside Glucose 138 109 94 94 Test 12/21/16 10:48 12/21/16 12:47 Bedside Glucose 116 110 Medications Medications Current Medications Ibuprofen (Motrin) 600 mg Q6 PRN PO pain Last administered on 12/21/16t 12:55 ; Admin Dose 600 MG; Start 12/19/16 at 05:30 Acetaminophen (Tylenol Tab) 650 mg Q4H PRN PO PAIN LEVEL 1-5 Last administered on 12/20/16 15:16; Admin Dose 650 MG; Start 12/19/16 at 05:30 Acetaminophen/ Hydrocodone Bitart ([place] (5/325)) 1 tab Q4H PRN PO PAIN LEVEL 1 -5 Last administered on 12/21/16 02:59; Admin Dose 1 TAB; Start 12/19/16 at 05:30 Senna/Docusate Sodium 1 tab 1 tab BID PO Last administered on 12/21/16 08:51 ; Admin Dose 1 TAB; Start 12/19/16 at 09:00 Oxytocin/Lactated Ringer's 500 ml @ 0 mls/hr ONCE PRN IV For Hemorrhage Management; Start 12/19/16 at 05:30 Carboprost Tromethamine (Hemabate) 250 mcg ONCE PRN IM VAGINAL BLEEDING; Start 12/19/16 at 05:30 Misoprostol (Cytotec) 1,[address] VAGINAL BLEEDING; Start 12/19/16 at 05:30 Diagnostic Test (Pha) (Accu-Chek) 1 ea FBSPP XX Last administered on 13:50; Admin Dose 1 EA; Start 12/19/16 at 06:00 Insulin Glargine (Lantus) 16 unit DAILY@08 SC Last administered on 12/21/16 08:03; Admin Dose 16 UNIT; Start 12/20/16 at 08:00 Miscellaneous Information 1 ea NOTE XX ; Start 12/19/16 at 18:00 Glucose (Glutose) 15 gm Q15M PRN PO DECREASED GLUCOSE; Start 12/19/16 at 18:00 Glucose (Glutose) 22.5 gm Q15M PRN PO DECREASED GLUCOSE; Start 12/19/16 at 18: 00 Dextrose (D50w Syringe) 25 ml Q15M PRN IV DECREASED GLUCOSE; Start 12/19/16 at 18:00 Dextrose (D50w Syringe) 50 ml Q15M PRN IV DECREASED GLUCOSE; Start 12/19/16 at 18:00 Glucagon (Glucagen) 1 mg Q15M PRN IM DECREASED GLUCOSE; Start 12/19/16 at 18: 00 Glucose (Glutose) 15 gm Q15M PRN BUCCAL DECREASED GLUCOSE; Start 10/25/17 at 18:00 MARY ROBERTO MD Dec 21, 2016 13:45
[2016-12-21 16:55] VITALS: BP 138/68; PULSE 70; RESP 16
[2016-12-21 20:00] VITALS: BP 152/80; PULSE 80; RESP 18
--- NOTE | 2016-12-21 20:15 | DS ---
Date/Time of Note Date/Time of Note DATE: 12/21/16 TIME: 20:15 Obstetrical Discharge Record Final Diagnosis Final Diagnosis: Term delivered Vaginal Delivery Obstetrical Delivery: Spontaneous Complications Insulin Dependent Diabete, Preg induced Hypertension Induction: Yes Condition on Discharge Physical Assessment Voiding: Yes Bowel Movement: Yes Breast: Soft, non-tender, Filling Fundus: Firm Calf Tenderness: No Patient Condition: Stable ANTHONY BONDS MD Dec 21, 2016 20:15
== END 2016-12-21 21:50 | disposition home or self-care (01) | DRG 774 ==
LOC: OBT 20:01 → L-D 20:02 → OBT 23:00 → OBG 23:00 → L-D 12-18 11:28 → PP1 12-19 05:01
PROVIDERS: ADMIT Obstetrics & Gynecology; ATTEND Obstetrics & Gynecology
PROC: 10E0XZZ Delivery of Products of Conception, External Approach (ICD-10-PCS; principal; 2016-12-19)
PROC: 0HQ9XZZ Repair Perineum Skin, External Approach (ICD-10-PCS; 2016-12-19)
PROC: 3E0P3VZ Introduction of Hormone into Female Reproductive, Percutaneous Approach (ICD-10-PCS; 2016-12-19)
DX: O14.90 Unspecified pre-eclampsia, unspecified trimester (principal); Z68.41 Body mass index [BMI] 40.0-44.9, adult; O24.113 Pre-existing type 2 diabetes mellitus, in pregnancy, third trimester; E11.9 Type 2 diabetes mellitus without complications; Z37.0 Single live birth; O99.213 Obesity complicating pregnancy, third trimester; E66.01 Morbid (severe) obesity due to excess calories; Z3A.37 37 weeks gestation of pregnancy; O70.0 First degree perineal laceration during delivery
CPT/HCPCS: 62319; 76818; 80053; 81001; 82962; 83036; 83735; 84560; 85025; 85384; 85610; 85730; 86592; 86850; 86900; 86901; 87086; 88307; 90686; 90715; G0463; J0290; J1815; J2590; J3010; J3475; J7120; J7121